=== PATIENT | female | born 1940 | race African-American/Black ===

== ENCOUNTER 2020-06-03 20:06 | Inpatient (IN) ==
[2020-06-03] MEDS ORDERED: IBUPROFEN 600 MG TABLET PO STA (20:24)
[2020-06-03 21:23] LABS: Basophils % 0.2 % (0.0-0.8); Hematocrit 42.9 VOL% (35.7-47.0); Hemoglobin 14.5 GM/DL (12.0-16.0); Immature Granulocytes % 0.6 %; Immature Granulocytes Absolute 0.03 #; Lymphocytes % 21.4 % (21.3-54.2); Mean Corpuscular HGB Conc 33.8 GM/DL (32-36); Mean Corpuscular Volume 87.6 FL (87-102); Mean Platelet Volume 12.2 FL (9.6-12.0); Monocytes % 9.7 % (1.7-12.7); Neutrophils % 68.1 % (38.7-73.9); Platelet Count 129 T/CUMM (130-400); Red Cell Distribution Width 13.5 % (9.3-17.3); White Blood Count 4.8 T/CUMM (4-12)
[2020-06-03 21:27] LABS: Albumin 3.2 G/DL (3.4-5.0); Bilirubin,Total 0.4 MG/DL (0.2-1.0); Calcium 8.2 MG/DL (8.5-10.1); Osmolality,Calculated 277.8 MOS/KG (273-304); Total Protein 7.9 G/DL (6.4-8.3)
[2020-06-03 21:34] LABS: PT Patient Result 11.2 SECS (9.8-11.9)
[2020-06-03] MEDS ORDERED: AZITHROMYCIN INJ 500 MG in SODIUM CHLORIDE 0.9% 250 ML IV ONE (22:53)
[2020-06-03] MEDS ORDERED: MAGNESIUM SULF RIDER 2 GM in PREMIX 1 EACH IV PRN (23:00)
[2020-06-03] MEDS ORDERED: MAGNESIUM SULF RIDER 4 GM in PREMIX 1 EACH IV PRN (23:00)
[2020-06-03] MEDS ORDERED: POTASSIUM CHLORIDE 20 MEQ TABLET PO PRN (23:00)
[2020-06-03] MEDS ORDERED: GLUCAGON 1 MG VIAL IM PRN (23:01)
[2020-06-03] MEDS ORDERED: ONDANSETRON 4 MG/2 ML VIAL IV PRN (23:01)
[2020-06-03] MEDS ORDERED: DEXTROSE 50% 25 GM/50 ML VIAL IV PRN (23:01)
[2020-06-03] MEDS ORDERED: DEXTROSE 50% 25 GM/50 ML SYRINGE IV PRN (23:12)
[2020-06-03] MEDS ORDERED: SODIUM CHLORIDE 0.9% 1,000 ML IV SCH (23:30)
[2020-06-04] MEDS: FAMOTIDINE 20 MG TABLET PO SCH ×3 (00:11→21:22)
[2020-06-04] MEDS: ASCORBIC ACID 500 MG TABLET PO SCH ×3 (00:12→21:22)
[2020-06-04] MEDS: ENOXAPARIN 40 MG/0.4 ML SYRINGE SUBCUT SCH ×2 (00:34→21:22)
[2020-06-04 04:41] LABS: Basophils % 0.5 % (0.0-0.8); Hematocrit 38.4 VOL% (35.7-47.0); Hemoglobin 12.9 GM/DL (12.0-16.0); Immature Granulocytes Absolute 0.04 #; Lymphocytes # 1.4 10*3/uL (1.4-4.0); Lymphocytes % 36.7 % (21.3-54.2); Mean Corpuscular HGB Conc 33.6 GM/DL (32-36); Mean Corpuscular Volume 88.7 FL (87-102); Mean Platelet Volume 11.4 FL (9.6-12.0); Monocytes % 11.3 % (1.7-12.7); Neutrophils % 50.5 % (38.7-73.9); Platelet Count 114 T/CUMM (130-400); Red Blood Count 4.33 MC/CUMM (3.8-5.5); Red Cell Distribution Width 13.5 % (9.3-17.3); White Blood Count 3.8 T/CUMM (4-12)
[2020-06-04 05:01] LABS: Albumin 2.8 G/DL (3.4-5.0); Bilirubin,Total 0.5 MG/DL (0.2-1.0); Calcium 7.9 MG/DL (8.5-10.1); Ferritin 253.1 ng/ml (8-252); Osmolality,Calculated 275.8 MOS/KG (273-304); Total Protein 6.8 G/DL (6.4-8.3)
[2020-06-04 05:08] LABS: Lymphocytes 41 % (20-55); Platelet Estimate Normal; Segmented Neutrophils 50 % (50-85); Total Cells Counted 100
[2020-06-04] MEDS: ALBUTEROL INHALER 18 GM INH SCH ×4 (07:43→18:17)
[2020-06-04] MEDS: INSULIN REGULAR 100 UNIT/ML SUBCUT SCH ×4 (08:01→21:22)
[2020-06-04] MEDS ORDERED: REMDESIVIR 200 MG in SODIUM CHLORIDE 0.9% 210 ML IV ONE (09:00)
[2020-06-04] MEDS: DEXAMETHASONE 4 MG/1 ML VIAL IV SCH (09:05)
[2020-06-04] MEDS: CHOLECALCIFEROL 1,000 UNIT TABLET PO SCH (09:05)
[2020-06-04] MEDS: CETIRIZINE 10 MG TABLET PO SCH (09:05)
[2020-06-04] MEDS: ZINC GLUCONATE 50 MG TABLET PO SCH (09:05)
[2020-06-04] MEDS ORDERED: SODIUM CHLORIDE 0.9% 1,000 ML IV PRN (13:39)
[2020-06-04] MEDS: ACETAMINOPHEN 325 MG TABLET PO PRN (21:22)
[2020-06-05] MEDS: ALBUTEROL INHALER 18 GM INH SCH ×4 (01:42→23:04)
[2020-06-05] MEDS: ACETAMINOPHEN 325 MG TABLET PO PRN (02:26)
[2020-06-05 05:13] LABS: Basophils % 0.2 % (0.0-0.8); Hematocrit 36.9 VOL% (35.7-47.0); Hemoglobin 12.6 GM/DL (12.0-16.0); Immature Granulocytes % 1.1 %; Immature Granulocytes Absolute 0.05 #; Lymphocytes # 1.1 10*3/uL (1.4-4.0); Lymphocytes % 25.2 % (21.3-54.2); Mean Corpuscular HGB Conc 34.1 GM/DL (32-36); Mean Corpuscular Volume 86.6 FL (87-102); Mean Platelet Volume 12.6 FL (9.6-12.0); Monocytes % 9.7 % (1.7-12.7); Neutrophils % 63.8 % (38.7-73.9); Platelet Count 122 T/CUMM (130-400); Red Blood Count 4.26 MC/CUMM (3.8-5.5); Red Cell Distribution Width 13.3 % (9.3-17.3); White Blood Count 4.5 T/CUMM (4-12)
[2020-06-05 05:46] LABS: Albumin 2.6 G/DL (3.4-5.0); Bilirubin,Total 0.6 MG/DL (0.2-1.0); Osmolality,Calculated 274.8 MOS/KG (273-304); Total Protein 6.6 G/DL (6.4-8.3)
[2020-06-05] MEDS: FAMOTIDINE 20 MG TABLET PO SCH ×2 (08:16→23:04)
[2020-06-05] MEDS: ASCORBIC ACID 500 MG TABLET PO SCH ×2 (08:16→23:04)
[2020-06-05] MEDS: DEXAMETHASONE 4 MG/1 ML VIAL IV SCH (08:16)
[2020-06-05] MEDS: CHOLECALCIFEROL 1,000 UNIT TABLET PO SCH (08:17)
[2020-06-05] MEDS: CETIRIZINE 10 MG TABLET PO SCH (08:17)
[2020-06-05] MEDS: ZINC GLUCONATE 50 MG TABLET PO SCH (08:17)
[2020-06-05] MEDS: INSULIN REGULAR 100 UNIT/ML SUBCUT SCH ×4 (10:58→23:17)
[2020-06-05] MEDS: REMDESIVIR 100 MG in SODIUM CHLORIDE 0.9% 100 ML IV SCH (11:10)
[2020-06-05] MEDS: ENOXAPARIN 40 MG/0.4 ML SYRINGE SUBCUT SCH (23:04)
[2020-06-05] MEDS: MELATONIN 3 MG TABLET PO PRN (23:05)
[2020-06-06] MEDS: ALBUTEROL INHALER 18 GM INH SCH ×4 (00:25→18:40)
[2020-06-06 07:06] LABS: Basophils % 0.3 % (0.0-0.8); Hematocrit 37.9 VOL% (35.7-47.0); Immature Granulocytes % 1.2 %; Immature Granulocytes Absolute 0.04 #; Lymphocytes # 1.1 10*3/uL (1.4-4.0); Lymphocytes % 32.5 % (21.3-54.2); Mean Corpuscular HGB Conc 34.3 GM/DL (32-36); Mean Corpuscular Volume 86.3 FL (87-102); Mean Platelet Volume 12.4 FL (9.6-12.0); Monocytes % 10.2 % (1.7-12.7); Neutrophils % 55.8 % (38.7-73.9); Platelet Count 150 T/CUMM (130-400); Red Blood Count 4.39 MC/CUMM (3.8-5.5); Red Cell Distribution Width 13.2 % (9.3-17.3); White Blood Count 3.2 T/CUMM (4-12)
[2020-06-06] MEDS: INSULIN REGULAR 100 UNIT/ML SUBCUT SCH ×4 (07:30→21:50)
[2020-06-06 07:31] LABS: Calcium 8.3 MG/DL (8.5-10.1); Osmolality,Calculated 286.3 MOS/KG (273-304)
[2020-06-06 08:32] LABS: Band Neutrophils 2 % (0-10); Hypochromasia 1+; Lymphocytes 24 % (20-55); Microcytosis 1+; Platelet Estimate Adequate; Segmented Neutrophils 68 % (50-85); Total Cells Counted 100
[2020-06-06] MEDS: CHOLECALCIFEROL 1,000 UNIT TABLET PO SCH (09:55)
[2020-06-06] MEDS: ZINC GLUCONATE 50 MG TABLET PO SCH (09:55)
[2020-06-06] MEDS: CETIRIZINE 10 MG TABLET PO SCH (09:55)
[2020-06-06] MEDS: ASCORBIC ACID 500 MG TABLET PO SCH ×2 (09:55→21:50)
[2020-06-06] MEDS: FAMOTIDINE 20 MG TABLET PO SCH ×2 (09:55→21:50)
[2020-06-06] MEDS: DEXAMETHASONE 4 MG/1 ML VIAL IV SCH (09:55)
[2020-06-06] MEDS: REMDESIVIR 100 MG in SODIUM CHLORIDE 0.9% 100 ML IV SCH (09:55)
[2020-06-06] MEDS: ACETAMINOPHEN 325 MG TABLET PO PRN (21:50)
[2020-06-06] MEDS: ENOXAPARIN 40 MG/0.4 ML SYRINGE SUBCUT SCH (21:50)
[2020-06-07] MEDS: ALBUTEROL INHALER 18 GM INH SCH ×5 (01:50→23:33)
[2020-06-07 05:50] LABS: Calcium 8.3 MG/DL (8.5-10.1); Osmolality,Calculated 282.4 MOS/KG (273-304)
[2020-06-07 05:58] LABS: Basophils % 0.2 % (0.0-0.8); Hemoglobin 13.7 GM/DL (12.0-16.0); Immature Granulocytes % 1.9 %; Immature Granulocytes Absolute 0.09 #; Lymphocytes # 1.3 10*3/uL (1.4-4.0); Lymphocytes % 27.2 % (21.3-54.2); Mean Corpuscular HGB Conc 33.4 GM/DL (32-36); Mean Corpuscular Volume 86.9 FL (87-102); Mean Platelet Volume 12.2 FL (9.6-12.0); Monocytes % 8.5 % (1.7-12.7); Neutrophils % 62.2 % (38.7-73.9); Platelet Count 211 T/CUMM (130-400); Red Blood Count 4.72 MC/CUMM (3.8-5.5); Red Cell Distribution Width 13.5 % (9.3-17.3); White Blood Count 4.7 T/CUMM (4-12)
[2020-06-07 08:04] LABS: Band Neutrophils 3 % (0-10); Lymphocytes 26 % (20-55); Segmented Neutrophils 60 % (50-85); Total Cells Counted 100
[2020-06-07 08:05] LABS: Hypochromasia 2+; Platelet Estimate Normal
[2020-06-07] MEDS: INSULIN REGULAR 100 UNIT/ML SUBCUT SCH ×4 (08:20→21:28)
[2020-06-07] MEDS: ASCORBIC ACID 500 MG TABLET PO SCH ×2 (10:26→21:28)
[2020-06-07] MEDS: CETIRIZINE 10 MG TABLET PO SCH (10:26)
[2020-06-07] MEDS: FAMOTIDINE 20 MG TABLET PO SCH ×2 (10:26→21:28)
[2020-06-07] MEDS: CHOLECALCIFEROL 1,000 UNIT TABLET PO SCH (10:26)
[2020-06-07] MEDS: ZINC GLUCONATE 50 MG TABLET PO SCH (10:26)
[2020-06-07] MEDS: DEXAMETHASONE 4 MG/1 ML VIAL IV SCH (10:27)
[2020-06-07] MEDS: REMDESIVIR 100 MG in SODIUM CHLORIDE 0.9% 100 ML IV SCH (10:30)
[2020-06-07] MEDS: ACETAMINOPHEN 325 MG TABLET PO PRN (21:27)
[2020-06-07] MEDS: ENOXAPARIN 40 MG/0.4 ML SYRINGE SUBCUT SCH (21:27)
[2020-06-08 00:13] LABS: Amorphous Crystals,Urine Occasional /HPF (Few); Bacteria,Urine Occasional /HPF (Few); Bilirubin,Urine Negative (Negative); Blood, Urine Small mg/dL (Negative); Calcium Oxalate Crystals,Urine Occasional /HPF (Few); Glucose,Urine (UA) 50 mg/dL (Negative); Hyaline Casts,Urine 1 /LPF (0-3); Ketones,Urine 5 mg/dL (Negative); Mucus,Urine Occasional /LPF (Occasional); Nitrite,Urine Negative (Negative); Protein,Urine 30 MG/DL; RBC,Urine <1 /HPF (0-4); Squamous Epithelial Cell,Urine Occasional /HPF (0-10); Urine Appearance Slightly Hazy (Clear); Urine Color Yellow (Yellow); Urine Specific Gravity 1.021 (1.001-1.035); WBC,Urine 3 /HPF (0-6)
[2020-06-08] MEDS: ALBUTEROL INHALER 18 GM INH SCH ×4 (02:00→21:20)
[2020-06-08 06:49] LABS: Basophils % 0.2 % (0.0-0.8); Hematocrit 43.1 VOL% (35.7-47.0); Hemoglobin 14.7 GM/DL (12.0-16.0); Immature Granulocytes % 1.7 %; Immature Granulocytes Absolute 0.16 #; Lymphocytes # 1.6 10*3/uL (1.4-4.0); Lymphocytes % 16.9 % (21.3-54.2); Mean Corpuscular HGB Conc 34.1 GM/DL (32-36); Mean Corpuscular Volume 87.8 FL (87-102); Mean Platelet Volume 11.7 FL (9.6-12.0); Monocytes % 5.6 % (1.7-12.7); Neutrophils % 75.6 % (38.7-73.9); Platelet Count 259 T/CUMM (130-400); Red Blood Count 4.91 MC/CUMM (3.8-5.5); Red Cell Distribution Width 13.5 % (9.3-17.3); White Blood Count 9.5 T/CUMM (4-12)
[2020-06-08 06:59] LABS: Calcium 8.7 MG/DL (8.5-10.1); Osmolality,Calculated 284.4 MOS/KG (273-304)
[2020-06-08] MEDS: CHOLECALCIFEROL 1,000 UNIT TABLET PO SCH (08:51)
[2020-06-08] MEDS: DEXAMETHASONE 4 MG/1 ML VIAL IV SCH (08:51)
[2020-06-08] MEDS: ASCORBIC ACID 500 MG TABLET PO SCH ×2 (08:52→21:17)
[2020-06-08] MEDS: CETIRIZINE 10 MG TABLET PO SCH (08:52)
[2020-06-08] MEDS: ZINC GLUCONATE 50 MG TABLET PO SCH (08:52)
[2020-06-08] MEDS: FAMOTIDINE 20 MG TABLET PO SCH ×2 (08:52→21:17)
[2020-06-08] MEDS: INSULIN REGULAR 100 UNIT/ML SUBCUT SCH ×4 (08:57→21:17)
[2020-06-08 09:45] LABS: Lymphocytes 15 % (20-55); Metamyelocytes 2 %; Platelet Estimate Normal; Segmented Neutrophils 77 % (50-85); Total Cells Counted 100
[2020-06-08] MEDS: REMDESIVIR 100 MG in SODIUM CHLORIDE 0.9% 100 ML IV SCH (09:55)
[2020-06-08] MEDS: MELATONIN 3 MG TABLET PO PRN (21:17)
[2020-06-08] MEDS: ENOXAPARIN 40 MG/0.4 ML SYRINGE SUBCUT SCH (21:18)
[2020-06-09] MEDS: ALBUTEROL INHALER 18 GM INH SCH ×4 (02:09→22:03)
[2020-06-09 05:55] LABS: Basophils % 0.3 % (0.0-0.8); Hematocrit 42.5 VOL% (35.7-47.0); Hemoglobin 14.1 GM/DL (12.0-16.0); Immature Granulocytes % 4.2 %; Immature Granulocytes Absolute 0.53 #; Lymphocytes # 1.5 10*3/uL (1.4-4.0); Lymphocytes % 11.8 % (21.3-54.2); Mean Corpuscular HGB Conc 33.2 GM/DL (32-36); Mean Corpuscular Volume 87.6 FL (87-102); Mean Platelet Volume 11.1 FL (9.6-12.0); Monocytes % 3.4 % (1.7-12.7); Neutrophils % 80.3 % (38.7-73.9); Platelet Count 263 T/CUMM (130-400); Red Blood Count 4.85 MC/CUMM (3.8-5.5); Red Cell Distribution Width 13.8 % (9.3-17.3); White Blood Count 12.5 T/CUMM (4-12)
[2020-06-09 06:12] LABS: Calcium 8.7 MG/DL (8.5-10.1); Osmolality,Calculated 287.1 MOS/KG (273-304)
[2020-06-09 06:27] LABS: Hypochromasia 2+; Lymphocytes 14 % (20-55); Metamyelocytes 1 %; Segmented Neutrophils 83 % (50-85); Total Cells Counted 100
[2020-06-09 06:28] LABS: Microcytosis 1+; Platelet Estimate Normal
[2020-06-09] MEDS: ASCORBIC ACID 500 MG TABLET PO SCH ×2 (08:15→22:02)
[2020-06-09] MEDS: FAMOTIDINE 20 MG TABLET PO SCH ×2 (08:15→22:02)
[2020-06-09] MEDS: CETIRIZINE 10 MG TABLET PO SCH (08:15)
[2020-06-09] MEDS: CHOLECALCIFEROL 1,000 UNIT TABLET PO SCH (08:15)
[2020-06-09] MEDS: DEXAMETHASONE 4 MG/1 ML VIAL IV SCH (08:15)
[2020-06-09] MEDS: ZINC GLUCONATE 50 MG TABLET PO SCH (08:15)
[2020-06-09] MEDS: INSULIN REGULAR 100 UNIT/ML SUBCUT SCH ×4 (08:58→22:02)
[2020-06-09] MEDS: METOPROLOL SUCCINATE XL 25 MG TABLET PO SCH (10:41)
[2020-06-09] MEDS: LEVOFLOXACIN INJ 750 MG in PREMIX 1 EACH IV SCH (16:20)
[2020-06-09] MEDS: MELATONIN 3 MG TABLET PO PRN (22:02)
[2020-06-09] MEDS: ENOXAPARIN 40 MG/0.4 ML SYRINGE SUBCUT SCH (22:02)
[2020-06-09] MEDS: ACETAMINOPHEN 325 MG TABLET PO PRN (22:13)
[2020-06-10] MEDS: ALBUTEROL INHALER 18 GM INH SCH ×4 (03:24→21:11)
[2020-06-10 05:02] LABS: Basophils % 0.3 % (0.0-0.8); Eosinophils % 0.1 % (0.00-10.9); Hematocrit 37.9 VOL% (35.7-47.0); Hemoglobin 12.9 GM/DL (12.0-16.0); Immature Granulocytes % 2.4 %; Immature Granulocytes Absolute 0.25 #; Lymphocytes % 10.1 % (21.3-54.2); Mean Corpuscular Volume 87.5 FL (87-102); Mean Platelet Volume 11.1 FL (9.6-12.0); Monocytes % 2.5 % (1.7-12.7); Neutrophils % 84.6 % (38.7-73.9); Platelet Count 171 T/CUMM (130-400); Red Blood Count 4.33 MC/CUMM (3.8-5.5); Red Cell Distribution Width 13.6 % (9.3-17.3); White Blood Count 10.2 T/CUMM (4-12)
[2020-06-10 05:23] LABS: Calcium 8.3 MG/DL (8.5-10.1); Osmolality,Calculated 283.4 MOS/KG (273-304)
[2020-06-10 05:41] LABS: Hypochromasia Slight; Platelet Estimate Adequate
[2020-06-10 05:42] LABS: Microcytosis 1+
[2020-06-10] MEDS: METOPROLOL SUCCINATE XL 25 MG TABLET PO SCH (08:17)
[2020-06-10] MEDS: ZINC GLUCONATE 50 MG TABLET PO SCH (08:17)
[2020-06-10] MEDS: FAMOTIDINE 20 MG TABLET PO SCH ×2 (08:17→21:09)
[2020-06-10] MEDS: ASCORBIC ACID 500 MG TABLET PO SCH ×2 (08:17→21:09)
[2020-06-10] MEDS: CHOLECALCIFEROL 1,000 UNIT TABLET PO SCH (08:17)
[2020-06-10] MEDS: DEXAMETHASONE 4 MG/1 ML VIAL IV SCH (08:17)
[2020-06-10] MEDS: CETIRIZINE 10 MG TABLET PO SCH (08:18)
[2020-06-10] MEDS: INSULIN REGULAR 100 UNIT/ML SUBCUT SCH ×4 (10:07→21:08)
[2020-06-10] MEDS: LEVOFLOXACIN INJ 750 MG in PREMIX 1 EACH IV SCH (14:48)
[2020-06-10] MEDS: ENOXAPARIN 40 MG/0.4 ML SYRINGE SUBCUT SCH (21:08)
[2020-06-10] MEDS: MELATONIN 3 MG TABLET PO PRN (21:09)
[2020-06-10] MEDS: ACETAMINOPHEN 325 MG TABLET PO PRN (21:09)
[2020-06-11] MEDS: ALBUTEROL INHALER 18 GM INH SCH ×4 (01:03→18:23)
[2020-06-11] MEDS: INSULIN REGULAR 100 UNIT/ML SUBCUT SCH ×4 (08:29→20:29)
[2020-06-11] MEDS: FAMOTIDINE 20 MG TABLET PO SCH ×2 (09:07→20:30)
[2020-06-11] MEDS: METOPROLOL SUCCINATE XL 25 MG TABLET PO SCH (09:07)
[2020-06-11] MEDS: ZINC GLUCONATE 50 MG TABLET PO SCH (09:07)
[2020-06-11] MEDS: CETIRIZINE 10 MG TABLET PO SCH (09:07)
[2020-06-11] MEDS: CHOLECALCIFEROL 1,000 UNIT TABLET PO SCH (09:07)
[2020-06-11] MEDS: ASCORBIC ACID 500 MG TABLET PO SCH ×2 (09:07→20:30)
[2020-06-11] MEDS: DEXAMETHASONE 4 MG/1 ML VIAL IV SCH (09:08)
[2020-06-11] MEDS: LEVOFLOXACIN INJ 750 MG in PREMIX 1 EACH IV SCH (14:32)
[2020-06-11] MEDS: ENOXAPARIN 40 MG/0.4 ML SYRINGE SUBCUT SCH (20:30)
[2020-06-11] MEDS: MELATONIN 3 MG TABLET PO PRN (20:31)
[2020-06-11] MEDS: guaiFENesin 200 MG/10 ML UDCUP PO PRN (21:31)
[2020-06-12] MEDS: ALBUTEROL INHALER 18 GM INH SCH ×4 (00:40→19:08)
[2020-06-12 04:38] LABS: Basophils % 0.1 % (0.0-0.8); Eosinophils % 0.2 % (0.00-10.9); Hematocrit 38.7 VOL% (35.7-47.0); Hemoglobin 13.1 GM/DL (12.0-16.0); Immature Granulocytes % 2.6 %; Immature Granulocytes Absolute 0.26 #; Lymphocytes # 0.8 10*3/uL (1.4-4.0); Lymphocytes % 7.4 % (21.3-54.2); Mean Corpuscular HGB Conc 33.9 GM/DL (32-36); Mean Corpuscular Volume 86.8 FL (87-102); Mean Platelet Volume 11.4 FL (9.6-12.0); Monocytes % 2.8 % (1.7-12.7); Neutrophils % 86.9 % (38.7-73.9); Platelet Count 149 T/CUMM (130-400); Red Blood Count 4.46 MC/CUMM (3.8-5.5); Red Cell Distribution Width 13.3 % (9.3-17.3); White Blood Count 10.1 T/CUMM (4-12)
[2020-06-12 05:01] LABS: Albumin 2.3 G/DL (3.4-5.0); Bilirubin,Total 0.8 MG/DL (0.2-1.0); Calcium 8.6 MG/DL (8.5-10.1); Osmolality,Calculated 280.7 MOS/KG (273-304); Total Protein 6.9 G/DL (6.4-8.3)
[2020-06-12] MEDS: INSULIN REGULAR 100 UNIT/ML SUBCUT SCH ×4 (07:57→21:14)
[2020-06-12] MEDS: METOPROLOL SUCCINATE XL 50 MG TABLET PO SCH (08:15)
[2020-06-12] MEDS: FAMOTIDINE 20 MG TABLET PO SCH ×2 (08:15→21:15)
[2020-06-12] MEDS: CETIRIZINE 10 MG TABLET PO SCH (08:15)
[2020-06-12] MEDS: ASCORBIC ACID 500 MG TABLET PO SCH ×2 (08:15→21:15)
[2020-06-12] MEDS: CHOLECALCIFEROL 1,000 UNIT TABLET PO SCH (08:15)
[2020-06-12] MEDS: DEXAMETHASONE 4 MG/1 ML VIAL IV SCH (08:16)
[2020-06-12] MEDS: ZINC GLUCONATE 50 MG TABLET PO SCH (08:16)
[2020-06-12] MEDS: LEVOFLOXACIN INJ 750 MG in PREMIX 1 EACH IV SCH (15:19)
[2020-06-12] MEDS: MELATONIN 3 MG TABLET PO PRN (21:14)
[2020-06-12] MEDS: ENOXAPARIN 40 MG/0.4 ML SYRINGE SUBCUT SCH (21:14)
[2020-06-12] MEDS: guaiFENesin 200 MG/10 ML UDCUP PO PRN (21:15)
[2020-06-13] MEDS: ALBUTEROL INHALER 18 GM INH SCH ×4 (00:51→19:07)
[2020-06-13 05:13] LABS: Basophils % 0.2 % (0.0-0.8); Eosinophils # 0.1 10*3/uL (0.0-0.87); Eosinophils % 0.6 % (0.00-10.9); Hematocrit 41.4 VOL% (35.7-47.0); Hemoglobin 14.2 GM/DL (12.0-16.0); Immature Granulocytes % 3.7 %; Immature Granulocytes Absolute 0.42 #; Lymphocytes % 8.5 % (21.3-54.2); Mean Corpuscular HGB Conc 34.3 GM/DL (32-36); Mean Corpuscular Volume 87.3 FL (87-102); Mean Platelet Volume 11.7 FL (9.6-12.0); Monocytes % 2.8 % (1.7-12.7); Neutrophils % 84.2 % (38.7-73.9); Platelet Count 145 T/CUMM (130-400); Red Blood Count 4.74 MC/CUMM (3.8-5.5); Red Cell Distribution Width 13.5 % (9.3-17.3); White Blood Count 11.3 T/CUMM (4-12)
[2020-06-13 05:47] LABS: Albumin 2.2 G/DL (3.4-5.0); Bilirubin,Total 1.2 MG/DL (0.2-1.0); Calcium 8.4 MG/DL (8.5-10.1); Osmolality,Calculated 280.5 MOS/KG (273-304); Total Protein 6.7 G/DL (6.4-8.3)
[2020-06-13] MEDS ORDERED: LORazepam 1 MG TABLET PO ONE (06:24)
[2020-06-13] MEDS: METOPROLOL SUCCINATE XL 50 MG TABLET PO SCH ×2 (06:34→09:23)
[2020-06-13] MEDS: SODIUM CHLORIDE 0.9% 1,000 ML IV SCH ×3 (07:59→21:11)
[2020-06-13] MEDS: CHOLECALCIFEROL 1,000 UNIT TABLET PO SCH (07:59)
[2020-06-13] MEDS: ZINC GLUCONATE 50 MG TABLET PO SCH (07:59)
[2020-06-13] MEDS: CETIRIZINE 10 MG TABLET PO SCH (07:59)
[2020-06-13] MEDS: ASCORBIC ACID 500 MG TABLET PO SCH ×2 (07:59→21:13)
[2020-06-13] MEDS: DEXAMETHASONE 4 MG/1 ML VIAL IV SCH (07:59)
[2020-06-13] MEDS: FAMOTIDINE 20 MG TABLET PO SCH ×2 (08:00→21:13)
[2020-06-13 08:31] LABS: ABG Base Excess 3.4 MMOL/L (-2.5-2.5); ABG HCO3 27.3 MMOL/L (20-26); ABG Oxygen Saturation 91.1 % (95-100); ABG PCO2 30.4 MM HG (35-48); ABG PH 7.528 (7.35-7.45); ABG PO2 57.3 MM HG (80-95); ABG TCO2 21.6 MMOL/L (23-27)
[2020-06-13] MEDS: INSULIN REGULAR 100 UNIT/ML SUBCUT SCH ×4 (09:18→22:08)
[2020-06-13 09:36] LABS: Calcium 8.3 MG/DL (8.5-10.1); Osmolality,Calculated 279.7 MOS/KG (273-304)
[2020-06-13] MEDS ORDERED: BISACODYL 10 MG SUPP RECTAL ONE (12:00)
[2020-06-13] MEDS: LEVOFLOXACIN INJ 750 MG in PREMIX 1 EACH IV SCH (14:30)
[2020-06-13] MEDS: ENOXAPARIN 40 MG/0.4 ML SYRINGE SUBCUT SCH (21:14)
[2020-06-14] MEDS: SODIUM CHLORIDE 0.9% 1,000 ML IV SCH ×3 (04:13→19:20)
[2020-06-14] MEDS: ALBUTEROL INHALER 18 GM INH SCH ×4 (05:30→20:46)
[2020-06-14 05:58] LABS: Basophils % 0.1 % (0.0-0.8); Eosinophils # 0.1 10*3/uL (0.0-0.87); Eosinophils % 0.8 % (0.00-10.9); Hemoglobin 11.8 GM/DL (12.0-16.0); Immature Granulocytes % 3.2 %; Immature Granulocytes Absolute 0.36 #; Lymphocytes # 0.9 10*3/uL (1.4-4.0); Lymphocytes % 8.2 % (21.3-54.2); Mean Corpuscular HGB Conc 33.7 GM/DL (32-36); Mean Corpuscular Volume 88.6 FL (87-102); Mean Platelet Volume 11.6 FL (9.6-12.0); Monocytes % 3.1 % (1.7-12.7); Neutrophils % 84.6 % (38.7-73.9); Platelet Count 126 T/CUMM (130-400); Red Blood Count 3.95 MC/CUMM (3.8-5.5); Red Cell Distribution Width 13.6 % (9.3-17.3); White Blood Count 11.1 T/CUMM (4-12)
[2020-06-14 06:10] LABS: Albumin 1.8 G/DL (3.4-5.0); Bilirubin,Total 0.7 MG/DL (0.2-1.0); Calcium 8.2 MG/DL (8.5-10.1); Osmolality,Calculated 285.3 MOS/KG (273-304); Total Protein 6.3 G/DL (6.4-8.3)
[2020-06-14 06:21] LABS: Hypochromasia 1+; Microcytosis 1+
[2020-06-14] MEDS: ZINC GLUCONATE 50 MG TABLET PO SCH (08:43)
[2020-06-14] MEDS: ASCORBIC ACID 500 MG TABLET PO SCH ×2 (08:43→20:46)
[2020-06-14] MEDS: INSULIN REGULAR 100 UNIT/ML SUBCUT SCH ×5 (08:43→20:49)
[2020-06-14] MEDS: FAMOTIDINE 20 MG TABLET PO SCH ×2 (08:43→20:46)
[2020-06-14] MEDS: CETIRIZINE 10 MG TABLET PO SCH (08:43)
[2020-06-14] MEDS: METOPROLOL SUCCINATE XL 50 MG TABLET PO SCH (08:43)
[2020-06-14] MEDS: CHOLECALCIFEROL 1,000 UNIT TABLET PO SCH (08:44)
[2020-06-14] MEDS: ACETAMINOPHEN 325 MG TABLET PO PRN (14:12)
[2020-06-14] MEDS: LEVOFLOXACIN INJ 750 MG in PREMIX 1 EACH IV SCH (16:16)
[2020-06-14] MEDS ORDERED: INSULIN REGULAR 100 UNIT/ML SUBCUT SCH (16:30)
[2020-06-14] MEDS: ENOXAPARIN 40 MG/0.4 ML SYRINGE SUBCUT SCH (20:46)
[2020-06-14] MEDS: propylthiouraciL 50 MG TABLET PO SCH (20:46)
[2020-06-15] MEDS: ALBUTEROL INHALER 18 GM INH SCH ×4 (02:15→19:44)
[2020-06-15] MEDS: SODIUM CHLORIDE 0.9% 1,000 ML IV SCH ×4 (02:15→22:45)
[2020-06-15] MEDS: ACETAMINOPHEN 325 MG TABLET PO PRN ×2 (04:29→20:38)
[2020-06-15 05:37] LABS: INR 1.3; PT Patient Result 14.1 SECS (9.8-11.9); Partial Thromboplastin Time 32.6 SECS (23.9-33.8)
[2020-06-15 05:44] LABS: Albumin 1.9 G/DL (3.4-5.0); Bilirubin,Total 1.1 MG/DL (0.2-1.0); Calcium 7.8 MG/DL (8.5-10.1); Ferritin 412.3 ng/ml (8-252); Osmolality,Calculated 277.7 MOS/KG (273-304); Total Protein 6.4 G/DL (6.4-8.3)
[2020-06-15] MEDS: propylthiouraciL 50 MG TABLET PO SCH ×3 (08:23→20:39)
[2020-06-15] MEDS: CHOLECALCIFEROL 1,000 UNIT TABLET PO SCH (08:23)
[2020-06-15] MEDS: CETIRIZINE 10 MG TABLET PO SCH (08:24)
[2020-06-15] MEDS: FAMOTIDINE 20 MG TABLET PO SCH ×2 (08:24→20:38)
[2020-06-15] MEDS: ZINC GLUCONATE 50 MG TABLET PO SCH (08:24)
[2020-06-15] MEDS: METOPROLOL SUCCINATE XL 50 MG TABLET PO SCH (08:24)
[2020-06-15] MEDS: ASCORBIC ACID 500 MG TABLET PO SCH ×2 (08:24→20:38)
[2020-06-15] MEDS: INSULIN REGULAR 100 UNIT/ML SUBCUT SCH ×7 (08:41→20:45)
[2020-06-15] MEDS ORDERED: ENOXAPARIN 40 MG/0.4 ML SYRINGE SUBCUT SCH (09:30)
[2020-06-15] MEDS: LEVOFLOXACIN INJ 750 MG in PREMIX 1 EACH IV SCH (14:30)
[2020-06-15] MEDS: APIXABAN 5 MG TABLET PO SCH (20:38)
[2020-06-16] MEDS: ALBUTEROL INHALER 18 GM INH SCH ×3 (00:37→12:55)
[2020-06-16 04:01] LABS: Basophils % 0.3 % (0.0-0.8); Eosinophils # 0.1 10*3/uL (0.0-0.87); Hematocrit 34.1 VOL% (35.7-47.0); Immature Granulocytes % 3.8 %; Immature Granulocytes Absolute 0.38 #; Lymphocytes % 9.9 % (21.3-54.2); Mean Corpuscular HGB Conc 35.2 GM/DL (32-36); Mean Corpuscular Volume 86.3 FL (87-102); Mean Platelet Volume 12.2 FL (9.6-12.0); Monocytes % 3.6 % (1.7-12.7); Neutrophils % 81.4 % (38.7-73.9); Platelet Count 108 T/CUMM (130-400); Red Blood Count 3.95 MC/CUMM (3.8-5.5); Red Cell Distribution Width 13.2 % (9.3-17.3)
[2020-06-16 04:23] LABS: Albumin 1.8 G/DL (3.4-5.0); Bilirubin,Total 0.9 MG/DL (0.2-1.0); Osmolality,Calculated 275.7 MOS/KG (273-304); Total Protein 6.2 G/DL (6.4-8.3)
[2020-06-16 06:52] LABS: Free T4 (Free Thyroxine) 1.63 NG/DL (0.76-1.46)
[2020-06-16] MEDS: INSULIN REGULAR 100 UNIT/ML SUBCUT SCH ×7 (11:13→20:59)
[2020-06-16] MEDS: propylthiouraciL 50 MG TABLET PO SCH ×3 (11:16→20:58)
[2020-06-16] MEDS: FAMOTIDINE 20 MG TABLET PO SCH ×2 (11:16→20:58)
[2020-06-16] MEDS: APIXABAN 5 MG TABLET PO SCH ×2 (11:16→20:58)
[2020-06-16] MEDS: CETIRIZINE 10 MG TABLET PO SCH (11:17)
[2020-06-16] MEDS: CHOLECALCIFEROL 1,000 UNIT TABLET PO SCH (11:17)
[2020-06-16] MEDS: ASCORBIC ACID 500 MG TABLET PO SCH ×2 (11:17→20:58)
[2020-06-16] MEDS: METOPROLOL SUCCINATE XL 50 MG TABLET PO SCH (11:17)
[2020-06-16] MEDS: ZINC GLUCONATE 50 MG TABLET PO SCH (11:17)
[2020-06-16] MEDS: LEVOFLOXACIN INJ 750 MG in PREMIX 1 EACH IV SCH (16:50)
[2020-06-16] MEDS: ACETAMINOPHEN 325 MG TABLET PO PRN (23:05)
[2020-06-17] MEDS: ALBUTEROL INHALER 18 GM INH SCH ×4 (00:06→20:15)
[2020-06-17 04:44] LABS: Basophils % 0.3 % (0.0-0.8); Eosinophils # 0.1 10*3/uL (0.0-0.87); Eosinophils % 0.8 % (0.00-10.9); Hemoglobin 11.9 GM/DL (12.0-16.0); Immature Granulocytes % 4.6 %; Immature Granulocytes Absolute 0.55 #; Lymphocytes # 1.2 10*3/uL (1.4-4.0); Mean Corpuscular Volume 86.2 FL (87-102); Mean Platelet Volume 12.3 FL (9.6-12.0); Monocytes % 4.3 % (1.7-12.7); Platelet Count 140 T/CUMM (130-400); Red Blood Count 4.06 MC/CUMM (3.8-5.5); Red Cell Distribution Width 13.2 % (9.3-17.3); White Blood Count 11.9 T/CUMM (4-12)
[2020-06-17 05:10] LABS: Eosinophils 1 % (0-10); Hypochromasia Slight; Lymphocytes 7 % (20-55); Microcytosis Slight; Ovalocytes Slight; Platelet Estimate Adequate; Segmented Neutrophils 88 % (50-85); Total Cells Counted 100
[2020-06-17 05:13] LABS: Albumin 1.8 G/DL (3.4-5.0); Calcium 8.3 MG/DL (8.5-10.1); Osmolality,Calculated 279.5 MOS/KG (273-304); Total Protein 6.4 G/DL (6.4-8.3)
[2020-06-17] MEDS: INSULIN REGULAR 100 UNIT/ML SUBCUT SCH ×7 (11:29→20:49)
[2020-06-17] MEDS: FAMOTIDINE 20 MG TABLET PO SCH ×2 (11:31→20:15)
[2020-06-17] MEDS: APIXABAN 5 MG TABLET PO SCH ×2 (11:31→20:15)
[2020-06-17] MEDS: propylthiouraciL 50 MG TABLET PO SCH ×3 (11:37→20:15)
[2020-06-17] MEDS: CHOLECALCIFEROL 1,000 UNIT TABLET PO SCH (11:37)
[2020-06-17] MEDS: METOPROLOL SUCCINATE XL 50 MG TABLET PO SCH (11:37)
[2020-06-17] MEDS: CETIRIZINE 10 MG TABLET PO SCH (11:37)
[2020-06-17] MEDS: ASCORBIC ACID 500 MG TABLET PO SCH ×2 (11:37→20:15)
[2020-06-17] MEDS: ZINC GLUCONATE 50 MG TABLET PO SCH (11:37)
[2020-06-17 12:47] LABS: Thyroglob. AB < 1.8 IU/mL (<4.0)
[2020-06-17 13:55] LABS: Triiodothyronine (T3) Total 63 ng/dL (80 - 200)
[2020-06-17] MEDS: LEVOFLOXACIN INJ 750 MG in PREMIX 1 EACH IV SCH (18:12)
[2020-06-18] MEDS: ALBUTEROL INHALER 18 GM INH SCH ×3 (02:59→14:11)
[2020-06-18 06:02] LABS: Basophils % 0.3 % (0.0-0.8); Eosinophils # 0.2 10*3/uL (0.0-0.87); Eosinophils % 1.2 % (0.00-10.9); Hematocrit 34.4 VOL% (35.7-47.0); Hemoglobin 11.6 GM/DL (12.0-16.0); Immature Granulocytes % 4.4 %; Immature Granulocytes Absolute 0.57 #; Lymphocytes # 1.4 10*3/uL (1.4-4.0); Lymphocytes % 11.1 % (21.3-54.2); Mean Corpuscular HGB Conc 33.7 GM/DL (32-36); Mean Corpuscular Volume 86.9 FL (87-102); Mean Platelet Volume 11.7 FL (9.6-12.0); Monocytes % 5.3 % (1.7-12.7); Neutrophils % 77.7 % (38.7-73.9); Platelet Count 164 T/CUMM (130-400); Red Blood Count 3.96 MC/CUMM (3.8-5.5); Red Cell Distribution Width 13.2 % (9.3-17.3); White Blood Count 12.9 T/CUMM (4-12)
[2020-06-18 06:26] LABS: Albumin 1.7 G/DL (3.4-5.0); Calcium 8.7 MG/DL (8.5-10.1); Osmolality,Calculated 278.5 MOS/KG (273-304); Total Protein 6.7 G/DL (6.4-8.3)
[2020-06-18 06:31] LABS: Hypochromasia 1+; Lymphocytes 9 % (20-55); Microcytosis 1+; Platelet Estimate Adequate; Segmented Neutrophils 89 % (50-85); Total Cells Counted 100
[2020-06-18] MEDS: INSULIN REGULAR 100 UNIT/ML SUBCUT SCH ×6 (07:40→17:40)
[2020-06-18] MEDS: ZINC GLUCONATE 50 MG TABLET PO SCH (09:25)
[2020-06-18] MEDS: FAMOTIDINE 20 MG TABLET PO SCH (09:25)
[2020-06-18] MEDS: ASCORBIC ACID 500 MG TABLET PO SCH (09:25)
[2020-06-18] MEDS: METOPROLOL SUCCINATE XL 50 MG TABLET PO SCH (09:25)
[2020-06-18] MEDS: CHOLECALCIFEROL 1,000 UNIT TABLET PO SCH (09:25)
[2020-06-18] MEDS: APIXABAN 5 MG TABLET PO SCH (09:25)
[2020-06-18] MEDS: CETIRIZINE 10 MG TABLET PO SCH (09:25)
[2020-06-18] MEDS: propylthiouraciL 50 MG TABLET PO SCH ×2 (09:25→17:30)
[2020-06-18] MEDS ORDERED: MYLANTA/LIDO VISC/NYST 180 ML BOTTLE SWISH/SWAL PRN (12:52)
[2020-06-18] MEDS: LEVOFLOXACIN INJ 750 MG in PREMIX 1 EACH IV SCH (17:30)
[2020-06-18 20:11] VITALS: BP 112/77
== END 2020-06-18 20:10 | DRG 177 ==
LOC: EDUNIT# → EDBD → N.ED 20:06 → N.EDINP 21:43 → SUATTDRO 21:43 → N.EDINP 06-04 14:46 → N.2E 06-04 15:16
PROVIDERS: ADMIT Internal Medicine; ATTEND Internal Medicine